=== PATIENT | male | born 1995 ===

== ENCOUNTER 2020-06-21 13:18 | Emergency (ER) | payer SELFPAY ==
[2020-06-21 14:26] VITALS: BP 110/69
[2020-06-21] MEDS ORDERED: IPRATROPIUM 0.02% NEBU 2.5 ML IH ONE (15:18)
[2020-06-21] MEDS ORDERED: dexAMETHasone 4 MG/ML VIAL IM ONE (15:18)
[2020-06-21] MEDS ORDERED: ALBUTEROL 2.5 MG/3 ML NEBU IH ONE (15:18)
[2020-06-21] MEDS ORDERED: ACETAMINOPHEN 325 MG TAB PO ONE (15:18)
--- NOTE | 2020-06-21 15:20 | Event Note ---
ED Screening Note ED Screening Note: Patient is a 25-year-old male presents emergency room complaints of flulike symptoms that began 4 days ago. He has associated generalized body aches, fever, chills, nausea, one episode of vomiting, cough, shortness of breath. He denies any ear pain, chest pain, abdominal pain. He denies any sick contacts or recent travel. No past medical history. No allergies to medications. He is a current every day smoker 1 pack/day. Wheezing and rhonchi on exam Oxygen saturation is 100% on room air in exam room This initial assessment/diagnostic orders/clinical plan/treatment(s) is/are subject to change based on patients health status, clinical progression and re- assessment by fellow clinical providers in the ED. Further treatment and workup at subsequent clinical providers discretion. Patient/guardian urged not to elope from the ED as their condition may be serious if not clinically assessed and ma naged. Initial orders include: Labs, x-ray, meds
--- NOTE | 2020-06-21 16:15 | XRay Report ---
CHEST 2 VIEWS INDICATION / CLINICAL INFORMATION: cough, SOB. COMPARISON: None available. FINDINGS: SUPPORT DEVICES: None. HEART / MEDIASTINUM: No significant abnormality. LUNGS / PLEURA: No significant pulmonary or pleural abnormality. No pneumothorax. ADDITIONAL FINDINGS: No significant additional findings. IMPRESSION: 1. No acute findings. Signer Name: Jose Davison MD Signed: 06/21/2020 4:10 PM Workstation Name: [id number]
[2020-06-21 17:06] LABS: Basophils % (Auto) 0.3 % (0.0-1.8); Eosinophils % (Auto) 0.1 % (0.0-4.3); Hematocrit 40.6 % (35.5-45.6); Hemoglobin 14.1 gm/dl (11.8-15.2); Lymphocytes # (Auto) 0.6 K/mm3 (1.2-5.4); Lymphocytes % (Auto) 5.5 % (13.4-35.0); Mean Corpuscular HGB Conc 35 % (32-34); Mean Corpuscular Volume 87 fl (84-94); Monocytes # (Auto) 0.9 K/mm3 (0.0-0.8); Monocytes % (Auto) 8.6 % (0.0-7.3); Platelet Count 158 K/mm3 (140-440); Red Blood Count 4.68 M/mm3 (3.65-5.03)
[2020-06-21 17:22] LABS: Alanine Aminotransferase 22 units/L (7-56); Albumin 4.1 g/dL (3.9-5); Blood Urea Nitrogen 6 mg/dL (9-20); Calcium 9.5 mg/dL (8.4-10.2); Hemolysis Index 3
[2020-06-21 17:24] LABS: BUN/Creatinine Ratio 10
--- NOTE | 2020-06-21 19:10 | Emergency Department Report ---
ED General Adult HPI - General Chief complaint: Dyspnea/Respdistress Stated complaint: FLU SYMPTOMS Time Seen by Provider: 06/21/20 15:18 Source: patient Mode of arrival: Stretcher Limitations: No Limitations - History of Present Illness Initial comments: Patient is a 25-year-old male presents emergency room complaints of flulike symptoms that began 4 days ago. He has associated generalized body aches, fever, chills, nausea, one episode of vomiting, cough, shortness of breath. He denies any ear pain, chest pain, abdominal pain. He denies any sick contacts or recent travel. No past medical history. No allergies to medications. He is a current every day smoker 1 pack/day. ED Review of Systems ROS: Stated complaint: FLU SYMPTOMS Other details as noted in HPI ED Physical Exam - General Limitations: No Limitations ED Course Vital Signs 06/21/20 14:25 Temperature 98.2 F Pulse Rate 90 Respiratory 20 Rate Blood Pressure 110/69 O2 Sat by Pulse 99 Oximetry ED Medical Decision Making - Lab Data Result diagrams: 06/21/20 16:44 06/21/20 16:44 Critical care attestation.: If time is entered above; I have spent that time in minutes in the direct care of this critically ill patient, excluding procedure time. ED Disposition Condition: Stable
== END 2020-06-21 16:00 | disposition left against medical advice (07) ==
LOC: ED 13:18
DX: J00 Acute nasopharyngitis [common cold] (principal); Z53.21 Procedure and treatment not carried out due to patient leaving prior to being seen by health care provider
CPT/HCPCS: 36415; 71046; 80053; 85025